=== PATIENT | female | born 1965 | race Caucasian/White ===

== ENCOUNTER 2017-05-25 16:35 | Emergency (ER) | payer OTHER ==
[~2017-05-25] VITALS: Ht 170.2 cm; Wt 104.6 kg
[~2017-05-25 16:35] MED LIST: ALBU1AER9 INH; CALCTAB5 PO; FEXO1TAB46 PO; FLUT0.0529 NAE; GLUCTAB7 PO; LORA-741 PO; MELO15TA4 PO; MULT-506 PO
[2017-05-25 16:40] VITALS: TEMP 37; Ht 170.2 cm; Wt 104.6 kg
[2017-05-25] MEDS ORDERED: AMPICILLIN/SULBACTAM SOD INJ 3,000 MG in SODIUM CHLORIDE 0.9% 100ML 100 ML IV ONE (17:00)
--- NOTE | 2017-05-25 17:05 | EMERGENCY ROOM VISIT NOTE ---
History Report prepared by Ling: Susanne Vasquez Under the Supervision of: Dr. Nigel Gerber M.D. First contact with patient: 16:44 Chief Complaint: BITE Stated Complaint: INFECTED CAT BITES ON LF ARM History of Present Illness The patient is a 51 year old female who presents to the Emergency Room with complaints of a worsening wound infection for the past 3 days. She reports she was bitten by a cat this past Friday on her left forearm. She tried to shake the animal off, but she latched on to a second site on her left arm. The cat is up to date on her vaccinations and there is no concern for rabies. Since Friday , the patients left forearm has become increasingly edematous and erythematous. The patient rates her current pain as a 2/10. Earlier this afternoon, she went to the [facility] clinic, but was referred here to the ED for further evaluation. The patient denies feeling febrile recently. She denies any pain or numbness in her left hand and states the hand function is still normal. She has experienced infected cat bites in the past as she is a volunteer with [employer] and admits to a history of MRSA with previous infections. She thinks she has had "4 or 5" MRSA infections within the past 10 years. She cannot remember when the most recent infection was. The patient takes daily arthritis medication. Her Tetanus is up to date. Source of History: patient Onset: [address] Position: arm (left) Symptom Intensity: 2/10 Timing: worsening Associated Symptoms: No fevers, No numbness (in the left hand) Review of Systems See HPI for pertinent positives & negatives. A total of 10 systems reviewed and were otherwise negative. Past Medical & Surgical Medical Problems: (1) Depression (2) LBBB (left bundle branch block) (3) Lipoma removal (4) MRSA (methicillin resistant Staphylococcus aureus) (5) Right knee DJD Surgical Problems: (1) H/O colonoscopy (2) History of tonsillectomy and adenoidectomy Social History Smoking Status: Never Smoker Alcohol Use: none Drug Use: none Marital Status: Housing Status: lives with family Occupation Status: employed Current/Historical Medications Scheduled Amoxicillin & Pot Clavulanate (Augmentin 875-125 mg), 875 MG PO BID Meloxicam (Mobic), 15 MG PO DAILY Ranitidine (Zantac), 150 MG PO BID Scheduled PRN Albuterol Sulfate (Proventil Hfa), 2 PUFFS INH QID PRN for SOB/Wheezing Allergies Coded Allergies: Clindamycin (Unverified Allergy, Intermediate, rash, 05/25/17) Rifampin (Unverified Allergy, Intermediate, rash, 05/25/17) Sulfa Drugs (Unverified Allergy, Mild, HIVES, 05/25/17) Physical Exam Vital Signs Date Time Temp Pulse Resp B/P (MAP) Pulse Ox O2 Delivery O2 Flow Rate FiO2 05/25/17 18:36 64 186/100 100 05/25/17 16:40 37.0 83 18 179/97 97 Room Air Physical Exam GENERAL: Patient is in no acute distress. HEENT: No acute trauma, normocephalic atraumatic, mucous membranes moist, no nasal congestion, no scleral icterus. NECK: No stridor, no adenopathy, no meningismus, trachea is midline. LUNGS: Clear to auscultation bilaterally, no wheeze, no rhonchi, breath sounds equal. HEART: Without murmurs gallops or rubs, regular rate and rhythm. ABDOMEN: Soft, nontender, bowel sounds positive, no hernias, no peritonitis. EXTREMITIES: There are 3 puncture wounds to the left anterior lateral aspect of the distal left arm. There was some pus like drainage from one of the punctures that was cultured. There is surrounding redness around all punctures with some warmth. No ascending infection. NVI distally. NEUROLOGIC: Oriented x 3, no acute motor or sensory deficits, no focal weakness. SKIN: No rash, no jaundice, no diaphoresis. Medical Decision & Procedures Laboratory Results 05/25/17 17:46 Red Blood Count 5.30, Mean Corpuscular Volume 83.6, Mean Corpuscular Hemoglobin 27.0, Mean Corpuscular Hemoglobin Concent 32.3, Mean Platelet Volume 10.3, Neutrophils (%) (Auto) 53.2, Lymphocytes (%) (Auto) 36.0, Monocytes (%) (Auto) 8.7, Eosinophils (%) (Auto) 1.9, Basophils (%) (Auto) 0.2, Neutrophils # (Auto) 3.35, Lymphocytes # (Auto) 2.27, Monocytes # (Auto) 0.55, Eosinophils # (Auto) 0.12, Basophils # (Auto) 0.01 Test 05/25/17 17:46 White Blood Count 6.30 K/uL (4.8-10.8) Red Blood Count 5.30 M/uL (4.2-5.4) Hemoglobin 14.3 g/dL (12.0-16.0) Hematocrit 44.3 % (37-47) Mean Corpuscular Volume 83.6 fL (80-100) Mean Corpuscular Hemoglobin 27.0 pg (25-34) Mean Corpuscular Hemoglobin Concent 32.3 g/dl (32-36) Platelet Count 216 K/uL (130-400) Mean Platelet Volume 10.3 fL (7.4-10.4) Neutrophils (%) (Auto) 53.2 % Lymphocytes (%) (Auto) 36.0 % Monocytes (%) (Auto) 8.7 % Eosinophils (%) (Auto) 1.9 % Basophils (%) (Auto) 0.2 % Neutrophils # (Auto) 3.35 K/uL (1.4-6.5) Lymphocytes # (Auto) 2.27 K/uL (1.2-3.4) Monocytes # (Auto) 0.55 K/uL (0.11-0.59) Eosinophils # (Auto) 0.12 K/uL (0-0.5) Basophils # (Auto) 0.01 K/uL (0-0.2) RDW Standard Deviation 43.4 fL (36.4-46.3) RDW Coefficient of Variation 14.2 % (11.5-14.5) Immature Granulocyte % (Auto) 0.0 % Immature Granulocyte # (Auto) 0.00 K/uL (0.00-0.02) Laboratory results reviewed by me. Medications Administered Medications (Trade) Dose Ordered Sig/Gregoria Route Start Time Stop Time Status Last Admin Dose Admin Ampicillin Sodium/ Sulbactam Sodium 3000 mg/Sodium Chloride 108 ml @ 200 mls/hr ONE ONCE IV 05/25/17 17:00 05/25/17 17:32 DC 05/25/17 17:49 200 MLS/HR ED Course 1645: The patient was evaluated in room A11. A complete history and physical exam was performed. 1700: Ampicillin Sodium/Sulbactam Sodium 3000/Sodium Chloride 108 ml @ 200 mls/ hr IV. 1814: I reevaluated the patient. She is feeling much better. I discussed her discharge instructions and she verbalized complete understanding and agreement. 2100: Augmentin Tab 875 mg PO. Medical Decision The differential diagnoses considered include cellulitis, neurovascular compromise, infected cat bite. The patient presents with a cat bite to her left arm that appears to be infected. She has no fever, she is not toxic. Her tetanus is current. The cats have been immunized. She has had infected cat bites before. The patient received a dose of IV Unasyn. CBC does not show any leukocytosis or anemia. She is being discharged on Augmentin. A culture of the drainage from one of the puncture sites was obtained and sent. The patient's blood pressure was elevated but she states she is anxious. This may be situational high blood pressure, she can follow with her doctors office for a recheck. She is to return here in about 24 hours for a recheck of the cellulitis. Sooner if things worsen. Medication Reconcilliation Current Medication List: was personally reviewed by me Blood Pressure Screening Patient's blood pressure: Elevated blood pressure Blood pressure disposition: Elevated BP felt to be situational Impression Primary Impression: Cellulitis Additional Impression: Infected cat bite Scribe Attestation The scribe's documentation has been prepared under my direction and personally reviewed by me in its entirety. I confirm that the note above accurately reflects all work, treatment, procedures, and medical decision making performed by me. Departure Information Dispostion Home / Self-Care Prescriptions Amoxicillin & Pot Clavulanate (Augmentin 875-125 mg) 1 Tab Tab 875 MG PO BID for 10 Days, #20 TAB Prov: Nigel Gerber M.D. 05/25/17 Referrals Sharon Soriano M.D. (MEDICAL) (PCP) Patient Instructions My [facility] Additional Instructions augmentin 2x per day for 10 days return tomorrow for a recheck, sooner for fever, vomiting or worsening sympotms Problem Qualifiers
[2017-05-25] MEDS ORDERED: ZNTT/150 PO (17:06)
[2017-05-25] MEDS ORDERED: ALBUAER INH (17:06)
[2017-05-25] MEDS ORDERED: AMOX875T PO (17:31)
[2017-05-25 17:54] LABS: BASO % 0.2 %; BASO ABS # 0.01 K/uL (0-0.2); COMPLETE YES; EOS % 1.9 %; HEMATOCRIT 44.3 % (37-47); LYMPH ABS # 2.27 K/uL (1.2-3.4); MEAN CELL VOLUME 83.6 fL (80-100); MEAN CORPUSCULAR HGB CONC 32.3 g/dl (32-36); MEAN PLATELET VOLUME 10.3 fL (7.4-10.4); MONO % 8.7 %; NEUT % 53.2 %; PLATELET COUNT 216 K/uL (130-400)
[2017-05-25] MEDS ORDERED: AMOXICILLIN/CLAVULANATE TAB 875 MG TAB PO ONE ×2 (18:25→21:00)
[2017-05-25] MEDS ORDERED: EMPTY 8 DRAM VIAL ONE (18:25)
[2017-05-25 18:36] VITALS: BP 186/100; PULSE 64; O2SAT 100
[2017-05-26] MEDS ORDERED: AMOX875T PO (13:48)
== END 2017-05-25 18:35 | disposition home or self-care (01) ==
LOC: C.EDB 16:35 → C.EDA 18:35
DX: L03.114 Cellulitis of left upper limb (principal); S51.852A Open bite of left forearm, initial encounter; W55.01XA Bitten by cat, initial encounter; M17.11 Unilateral primary osteoarthritis, right knee; Z86.14 Personal history of Methicillin resistant Staphylococcus aureus infection; Z90.89 Acquired absence of other organs; Z98.890 Other specified postprocedural states

== ENCOUNTER 2017-05-26 13:40 | Emergency (ER) | payer OTHER ==
[~2017-05-26] VITALS: Ht 170.2 cm; Wt 104.3 kg
[~2017-05-26 13:40] MED LIST changes: -ALBU1AER9 INH; +ALBUAER INH; +AMOX875T PO; -CALCTAB5 PO; -FEXO1TAB46 PO; -FLUT0.0529 NAE; -GLUCTAB7 PO; -LORA-741 PO; -MULT-506 PO; +ZNTT/150 PO
[2017-05-26 13:46] VITALS: BP 158/94; PULSE 83; TEMP 36.8; O2SAT 97; Ht 170.2 cm; Wt 104.3 kg
[2017-05-26] MEDS ORDERED: AMOX875T PO (13:48)
--- NOTE | 2017-05-26 14:02 | EMERGENCY ROOM VISIT NOTE ---
ED Visit Note First contact with patient: 13:50 CHIEF COMPLAINT: Wound check HISTORY OF PRESENT ILLNESS: This 51-year-old female patient presents to the emergency department ambulatory for a recheck of infected cat bite to the left forearm. The patient has not had complaints. Previous care outlined has been followed without difficulty. The patient described their pain as mild, 1/10, and is located within the wound. REVIEW OF SYSTEMS: A 6 system review of systems was completed with positives and pertinent negatives listed in the HPI. ALLERGIES: Clindamycin, rifampin, sulfa MEDICATIONS: Proventil, Zantac, Mobic PMH: Unchanged from previous visit. PHYSICAL EXAM: Vital Signs reviewed, see Nurse's notes. Patient is afebrile, vital signs stable. GENERAL: This is a 51-year-old female, awake, alert, well appearing, no acute distress MUSCULOSKELETAL: Inspection of the left forearm reveals a healing wound. The patient has multiple punctures and scratches to the bilateral hands and forearms. The area of cellulitis to the left forearm has receded inside the demarcated area. There is no significant tenderness. There is no significant swelling. There is no lymphangitic streaking. NEURO: No sensory or motor deficits noted. EMERGENCY DEPARTMENT COURSE AND DECISION MAKING: I examined the patient. The patient presented with an isolated wound as above. The cellulitis has improved markedly. The patient has no fever. She is nontoxic in appearance. There is no significant fluctuance or drainage. The patient was advised to watch for fluctuance at the site of the puncture wounds to the left forearm in the event that this may localize into an abscess. The patient is taking Augmentin which seems to be working. Culture from yesterday is still pending but at this point reveals a gram-negative bacilli. She should continue the Augmentin. She should return with any worsening redness, swelling , warmth, fever. Problem List Medical Problems: (1) Depression Status: Chronic (2) LBBB (left bundle branch block) Status: Chronic (3) Lipoma removal Status: Chronic (4) MRSA (methicillin resistant Staphylococcus aureus) Status: Chronic (5) Right knee DJD Status: Chronic Surgical Problems: (1) H/O colonoscopy Permanent Comment: 10/2014 - serrated adenoma, internal hemorrhoids Status: Chronic (2) History of tonsillectomy and adenoidectomy Status: Chronic Current/Historical Medications Scheduled Amoxicillin & Pot Clavulanate (Augmentin 875-125 mg), 1 TAB PO BID Meloxicam (Mobic), 15 MG PO DAILY Ranitidine (Zantac), 150 MG PO BID Scheduled PRN Albuterol Sulfate (Proventil Hfa), 2 PUFFS INH QID PRN for SOB/Wheezing Allergies Coded Allergies: Clindamycin (Unverified Allergy, Intermediate, rash, 05/26/17) Rifampin (Unverified Allergy, Intermediate, rash, 05/26/17) Sulfa Drugs (Unverified Allergy, Mild, HIVES, 05/26/17) Vital Signs Date Time Temp Pulse Resp B/P (MAP) Pulse Ox O2 Delivery O2 Flow Rate FiO2 05/26/17 13:46 36.8 83 18 158/94 97 Room Air Departure Information Impression Primary Impression: Encounter for wound re-check Additional Impression: Infected cat bite Dispostion Home / Self-Care Condition GOOD Referrals Sharon Soriano M.D. (MEDICAL) (PCP) Patient Instructions Cellulitis - [facility], ED Bite Cat, [facility] Additional Instructions Continue the Augmentin as prescribed until finished Keep the area clean and dry. Return immediately with worsening redness, swelling, warmth, fevers, streaking up the arm or generalized worsening symptoms Otherwise, recheck with your family doctor next week. Problem Qualifiers Additional Impression: Infected cat bite Encounter type: subsequent encounter Qualified Codes: W55.01XD - Bitten by cat, subsequent encounter
== END 2017-05-26 14:12 | disposition home or self-care (01) ==
LOC: C.EDB 13:41 → C.EDD 14:12
DX: S51.852A Open bite of left forearm, initial encounter (principal); L08.9 Local infection of the skin and subcutaneous tissue, unspecified; W55.01XA Bitten by cat, initial encounter; Y92.9 Unspecified place or not applicable; Z09 Encounter for follow-up examination after completed treatment for conditions other than malignant neoplasm; F32.9 Major depressive disorder, single episode, unspecified; I44.7 Left bundle-branch block, unspecified; M17.9 Osteoarthritis of knee, unspecified; Z86.14 Personal history of Methicillin resistant Staphylococcus aureus infection; Z79.899 Other long term (current) drug therapy